=== PATIENT | female | born 1980 | race Caucasian/White ===

== ENCOUNTER 2017-10-12 16:05 | Emergency (ER) | payer OTHER ==
[~2017-10-12] VITALS: Ht 170.2 cm; Wt 70.3 kg
[~2017-10-12 16:05] MED LIST: BIOTIN; CYCL10 PO; HYDACE5 PO; HYDACE5325 PO; Hair, Skin & N1 EACH PO; MULVITMINE; NAPR375 PO; NAPR500 PO; Norco 10-325 T1 EACH PO; RXCYCL10 PO; RXHYDACE PO; RXTRAM50 PO; TRAM50 PO; VENL37.5ER; Zofran Odt4 MG SL
[2017-10-12] MEDS ORDERED: Sudogest60 MG PO (17:53)
[2017-10-12] MEDS ORDERED: Flonase 0.05% N16 GM (17:53)
[2017-10-12] MEDS ORDERED: Norco 5-325 Ta1 EACH PO (17:53)
== END 2017-10-12 18:14 | disposition home or self-care (01) ==
LOC: ER 16:05
DX: H92.02 Otalgia, left ear (principal); F32.9 Major depressive disorder, single episode, unspecified; F17.200 Nicotine dependence, unspecified, uncomplicated; Z79.899 Other long term (current) drug therapy
CPT/HCPCS: 99283

== ENCOUNTER 2018-10-02 12:18 | Emergency (ER) | payer OTHER ==
[~2018-10-02] VITALS: Ht 170.2 cm; Wt 72.6 kg
[~2018-10-02 12:18] MED LIST changes: +Flonase 0.05% N16 GM; +Norco 5-325 Ta1 EACH PO; +Sudogest60 MG PO
[2018-10-02] MEDS ORDERED: HYDR1TAB94 PO (13:14)
[2018-10-02] MEDS ORDERED: CYCL10 PO (13:14)
[2018-10-02] MEDS ORDERED: IBUP600 PO (13:14)
== END 2018-10-02 13:20 | disposition home or self-care (01) ==
LOC: ER 12:18
DX: S16.1XXA Strain of muscle, fascia and tendon at neck level, initial encounter (principal); M62.838 Other muscle spasm; V43.52XA Car driver injured in collision with other type car in traffic accident, initial encounter; Z79.899 Other long term (current) drug therapy; F17.200 Nicotine dependence, unspecified, uncomplicated; F32.9 Major depressive disorder, single episode, unspecified
CPT/HCPCS: 72040; 99283-25

== ENCOUNTER 2020-10-10 14:56 | Emergency (ER) | payer SELFPAY ==
[~2020-10-10] VITALS: Ht 170.2 cm; Wt 56.7 kg
[~2020-10-10 14:56] MED LIST changes: +HYDR1TAB94 PO; +IBUP600 PO
[2020-10-10] MEDS ORDERED: BUPRENORPHIN-N1 EAC1 (15:10)
== END 2020-10-10 16:39 | disposition home or self-care (01) ==
LOC: ER 14:56
DX: R00.2 Palpitations (principal); F10.129 Alcohol abuse with intoxication, unspecified; F17.200 Nicotine dependence, unspecified, uncomplicated
CPT/HCPCS: 82947; 93005; 93010; 99284-25; A9270